=== PATIENT | female | born 1985 | race African-American/Black ===

== ENCOUNTER 2016-11-29 20:56 | Emergency (ER) | payer OTHER ==
[~2016-11-29] VITALS: Ht 160 cm; Wt 74.8 kg
[2016-11-29] MEDS ORDERED: DEXAMETHASONE SOD PHOS 20 MG/5 ML VIAL. IM ONE (22:00)
[2016-11-29] MEDS ORDERED: FAMOTIDINE 20 MG TABLET. PO ONE (22:00)
[2016-11-29] MEDS ORDERED: IV NORMAL SALINE 1000ML BAG 1,000 ML IV ONE (23:00)
[2016-11-29] MEDS ORDERED: diphenhydrAMINE 50 MG/ML VIAL IVP ONE (23:00)
[2016-11-29 23:09] LABS: POTASSIUM ISTAT 3.4 mmol/L (3.5-5.0)
[2016-11-29] MEDS ORDERED: FAMO-63 PO (23:36)
--- NOTE | 2016-11-29 23:37 | PHYS DOC ---
Past Medical History Past Medical History: No Pertinent History Past Surgical History: Alcohol Use: None Drug Use: None Adult General Chief Complaint Chief Complaint: ALLERGIC REACTION HPI HPI -year-old female with a history of prior hives after cutting the 1 now presents emergency department complaining of hives after cutting the lawn. Patient feels like she had a funny sensation in her throat but she is not short of breath. She has no wheezing. She reports itching and hives. No other complaints specifically she is not short of breath Review of Systems Review of Systems Constitutional: Denies fever or chills [] Eyes: Denies change in visual acuity, redness, or eye pain [] HENT: Denies nasal congestion or sore throat [] Respiratory: Denies cough or shortness of breath [] Cardiovascular: No additional information not addressed in HPI [] GI: Denies abdominal pain, nausea, vomiting, bloody stools or diarrhea [] : Denies dysuria or hematuria [] Musculoskeletal: Denies back pain or joint pain [] Integument: Denies rash or skin lesions [] Neurologic: Denies headache, focal weakness or sensory changes [] Endocrine: Denies polyuria or polydipsia [] Current Medications Current Medications Current Medications Medications (Trade) Dose Ordered Sig/Simone Start Time Stop Time Status Last Admin Dose Admin Dexamethasone Sodium Phosphate (Decadron) 10 mg 1X ONCE 11/29/16 22:00 11/29/16 22:01 DC 11/29/16 22:11 10 MG Diphenhydramine HCl (Benadryl) 25 mg 1X ONCE 11/29/16 23:00 11/29/16 23:03 DC 11/29/16 23:03 25 MG Famotidine (Pepcid) 20 mg 1X ONCE 11/29/16 22:00 11/29/16 22:01 DC 11/29/16 22:10 20 MG Sodium Chloride 1,000 ml @ 1,000 mls/hr 1X ONCE 11/29/16 23:00 11/29/16 23:59 11/29/16 23:03 1,000 MLS/HR Allergies Allergies Allergies Coded Allergies Type Severity Reaction Last Updated Verified amoxicillin Allergy Intermediate "Amoxicillin rash." 08/28/14 Yes Physical Exam Physical Exam Well-appearing patient in no acute distress alert communicative. Facial hives with no oropharyngeal involvement. Normal oropharynx. No stridor normal voice clear lungs no gross spasm. Remainder of exam is benign except for scattered urticaria Constitutional: Well developed, well nourished, no acute distress, non-toxic appearance. [] HENT: Normocephalic, atraumatic, bilateral external ears normal, oropharynx moist, no oral exudates, nose normal. [] Eyes: PERRLA, EOMI, conjunctiva normal, no discharge. [] Neck: Normal range of motion, no tenderness, supple, no stridor. [] Cardiovascular:Heart rate regular rhythm, no murmur [] Lungs & Thorax: Bilateral breath sounds clear to auscultation [] Abdomen: Bowel sounds normal, soft, no tenderness, no masses, no pulsatile masses. [] Skin: Warm, dry, no erythema, no rash. [] Back: No tenderness, no CVA tenderness. [] Extremities: No tenderness, no cyanosis, no clubbing, ROM intact, no edema. [] Neurologic: Alert and oriented X 3, normal motor function, normal sensory function, no focal deficits noted. [] Psychologic: Affect normal, judgement normal, mood normal. [] Current Patient Data Vital Signs Vital Signs Date Time Temp Pulse Resp B/P (MAP) Pulse Ox O2 Delivery O2 Flow Rate FiO2 11/29/16 21:05 98.3 100 16 100 Room Air 98.3 Lab Values Laboratory Tests Test 11/29/16 22:58 POC Hemoglobin 12.6 g/dL (12-15) POC Hematocrit 37 % (36-40) POC Sodium 138 mmol/L (135-145) POC Potassium 3.4 mmol/L (3.5-5.0) L POC Chloride 101 mmol/L (98-110) POC Total CO2 25 mmol/L (23-32) Anion Gap 17 mmol/L (6-14) H POC Blood Urea Nitrogen 12 mg/dL (8-26) POC Creatinine 0.7 mg/dL (0.5-1.4) Glucose Level 89 mg/dL (70-99) POC Ionized Calcium (Henry) 1.21 mmol/L (1.13-1.32) Laboratory Tests 11/29/16 22:58 EKG EKG [] Radiology/Procedures Radiology/Procedures [] Course & Med Decision Making Course & Med Decision Making Pertinent Labs and Imaging studies reviewed. (See chart for details) Signs and symptoms consistent with allergic reaction but no clinical evidence of anaphylaxis. Patient clearly with urticaria but is in no acute distress with unremarkable vital signs. IV fluids given.. Patient observed for extended period with no evidence of evolving airway involvement. Vital signs stable i- STAT unremarkable no further workup or treatment indicated. Patient agrees with outpatient follow-up and start prescription. She is aware to use Benadryl and Pepcid as needed as prescribed follow-up with her primary care doctor tomorrow and strict return precautions given. [] Dragon Disclaimer Dragon Disclaimer This electronic medical record was generated, in whole or in part, using a voice recognition dictation system. Departure Departure Impression: Primary Impression: Allergic reaction Additional Impression: Urticaria Disposition: HOME, SELF-CARE Condition: IMPROVED Referrals: RENEE LARA MD (PCP) Additional Instructions: It is likely that you're urticaria is a result of an allergic reaction to something that you were exposed to while cutting the lawn. You have no evidence of airway involvement this evening. You been given steroids in the emergency department. Finish her prednisone prescription as directed. Use Benadryl every 4 hours as well as Pepcid twice a day as needed for itching and symptoms of allergic reaction. Follow-up with your doctor for reevaluation and to arrange allergy testing after resolution of your symptoms. Return immediately for new severe or worsening symptoms specifically for any signs of airway involvement. Scripts Prednisone (PREDNISONE) 20 Mg Tablet 1 TAB PO DAILY, #5 TAB Prov: GABO QUINTANILLA MD 11/29/16 Famotidine (PEPCID) 20 Mg Tablet 20 MG PO BID Y for ALLERGIES, #14 TAB Prov: GABO QUINTANILLA MD 11/29/16 Problem Qualifiers GABO QUINTANILLA MD Nov 29, 2016 23:36
[2016-11-29] MEDS ORDERED: PRED20TA PO (23:43)
[2016-11-30 00:12] VITALS: BP 129/73
== END 2016-11-30 00:13 | disposition home or self-care (01) ==
LOC: ER 20:56
DX: L50.0 Allergic urticaria (principal); Z88.0 Allergy status to penicillin
CPT/HCPCS: 80047; 96361; 96372; 96374; 99284; J1100; J1200; J7030; 36415

== ENCOUNTER 2016-12-12 12:36 | Emergency (ER) | payer OTHER ==
[~2016-12-12] VITALS: Ht 160 cm; Wt 74.8 kg
[~2016-12-12 12:36] MED LIST: FAMO-63 PO; PRED20TA PO
[2016-12-12 12:56] VITALS: BP 127/90
[2016-12-12] MEDS ORDERED: PRED20TA PO (13:16)
--- NOTE | 2016-12-12 13:16 | PHYS DOC ---
Past Medical History Past Medical History: No Pertinent History Past Surgical History: Alcohol Use: None Drug Use: None Adult General Chief Complaint Chief Complaint: ALLERGIC REACTION HPI HPI Patient is a 31 year old female presents to the emergency department stating that she is here for a rash that she's had for a couple weeks. She was seen here the week ago in regards to the rash and was placed on prednisone. She states that the area has not really gotten much better. She states that she ended the steroids approximately 4 days ago the rash is come back. She denies any shortness of air difficulty breathing. Review of Systems Review of Systems Constitutional: Denies fever or chills [] Eyes: Denies change in visual acuity, redness, or eye pain [] HENT: Denies nasal congestion or sore throat [] Respiratory: Denies cough or shortness of breath [] Cardiovascular: No additional information not addressed in HPI [] GI: Denies abdominal pain, nausea, vomiting, bloody stools or diarrhea [] : Denies dysuria or hematuria [] Musculoskeletal: Denies back pain or joint pain [] Integument: rash denies skin lesions [] Neurologic: Denies headache, focal weakness or sensory changes [] Endocrine: Denies polyuria or polydipsia [] Allergies Allergies Allergies Coded Allergies Type Severity Reaction Last Updated Verified amoxicillin Allergy Intermediate "Amoxicillin rash." 08/28/14 Yes Physical Exam Physical Exam Constitutional: Well developed, well nourished, no acute distress, non-toxic appearance. [] HENT: Normocephalic, atraumatic, bilateral external ears normal, oropharynx moist, no oral exudates, nose normal. [] Eyes: PERRLA, EOMI, conjunctiva normal, no discharge. [] Neck: Normal range of motion, no tenderness, supple, no stridor. [] Cardiovascular:Heart rate regular rhythm, no murmur [] Lungs & Thorax: Bilateral breath sounds clear to auscultation [] Skin: Warm, dry, no erythema, patient with a red rash that is not raised on her hands and on the left side of her face. She does have raised areas noted on her forehead. No drainage or discharge noted from the site. Back: No tenderness Extremities: No tenderness, no cyanosis, no clubbing, ROM intact, no edema. [] Neurologic: Alert and oriented X 3, normal motor function, normal sensory function, no focal deficits noted. [] Psychologic: Affect normal, judgement normal, mood normal. [] Current Patient Data Vital Signs Vital Signs Date Time Temp Pulse Resp B/P (MAP) Pulse Ox O2 Delivery O2 Flow Rate FiO2 12/12/16 12:56 98.0 77 18 99 Room Air 98.0 EKG EKG [] Radiology/Procedures Radiology/Procedures [] Course & Med Decision Making Course & Med Decision Making Pertinent Labs and Imaging studies reviewed. (See chart for details) Patient will be provided with a Solu-Medrol injection here in the emergency department. She'll be provided with prednisone for the next 7 days. Recommended Benadryl 25 mg every 6 hours. She was instructed that this will cause drowsiness do not take any be alert and oriented. Patient was also encouraged to use Pepcid. Patient will be discharged home in stable condition signs and symptoms to return back to emergency department as been provided. All questions and concerns been answered at patient's bedside. She does have an appointment with her primary care physician in the next week. [] Dragon Disclaimer Dragon Disclaimer This electronic medical record was generated, in whole or in part, using a voice recognition dictation system. Departure Departure Impression: Primary Impression: Contact dermatitis Disposition: 01 HOME, SELF-CARE Condition: STABLE Referrals: RENEE LARA MD (PCP) Patient Instructions: Rash, [id number] Additional Instructions: Activity as tolerated. Continue with the Benadryl 25 mg every 6 hours as needed for itching and irritation. Keep the areas clean dry and cool. Medication as prescribed. Continue with Pepcid. Keep your follow-up appointment next week with her primary care physician. Return back to emergency prior signs symptoms become worse. Scripts Prednisone (PREDNISONE) 20 Mg Tablet 40 MG PO DAILY for 7 Days, #14 TAB Prov: IBETH KEY APRN 12/12/16 Problem Qualifiers Primary Impression: Contact dermatitis Contact dermatitis type: unspecified Contact dermatitis trigger: unspecified trigger Qualified Codes: L25.9 - Unspecified contact dermatitis, unspecified cause IBETH KEY APRN Dec 12, 2016 13:16
[2016-12-12] MEDS ORDERED: methylPREDNISolone SOD SUCC PF 125 MG/2 ML VIAL. IM ONE (13:30)
== END 2016-12-12 13:28 | disposition home or self-care (01) ==
LOC: ER 12:36
DX: L25.9 Unspecified contact dermatitis, unspecified cause (principal); Z88.1 Allergy status to other antibiotic agents
CPT/HCPCS: 96372; 99283; J2930

== ENCOUNTER 2017-06-29 21:41 | Emergency (ER) | payer OTHER ==
[2017-06-29 22:11] LABS: ADD MAN DIFF? NO
[2017-06-29 22:15] LABS: BASO # 0.1 x10^3/uL (0.0-0.2); BASO % 1 % (0-3); EOS # 0.3 x10^3/uL (0.0-0.7); EOS % 4 % (0-3); HEMATOCRIT 36.4 % (36.0-47.0); HEMOGLOBIN 12.1 g/dL (12.0-15.5); LYMPH # 2.5 x10^3/uL (1.0-4.8); LYMPH % 32 % (24-48); MEAN CORPUSCULAR HEMOGLOBIN 28 pg (25-35); MEAN CORPUSCULAR HGB CONC 33 g/dL (31-37); MEAN CORPUSCULAR VOLUME 84 fL (79-100); MONO # 0.3 x10^3/uL (0.0-1.1); MONO % 4 % (0-9); NEUT # 4.7 x10^3uL (1.8-7.7); NEUT % 60 % (31-73); PLATELET COUNT 320 x10^3/uL (140-400); RED BLOOD COUNT 4.32 x10^6/uL (3.50-5.40); RED CELL DISTRIBUTION WIDTH 14.8 % (11.5-14.5); WHITE BLOOD COUNT 7.9 x10^3/uL (4.0-11.0)
[2017-06-29] MEDS ORDERED: 0.9 % SODIUM CHLORIDE 10 ML DISP.SYRIN. IV (22:15)
[2017-06-29] MEDS ORDERED: MORPHINE SULFATE 10 MG/ML VIAL. (22:21)
[2017-06-29] MEDS: MORPHINE SULFATE 4 MG/ML DISP.SYRIN. IV/SQ ×2 (22:29→23:13)
[2017-06-29] MEDS: ONDANSETRON PF 4 MG/2 ML VIAL. IV ×2 (22:29)
[2017-06-29] MEDS: IV DEXTROSE 5% - 0.9 % NACL 500 ML IV (22:29)
[2017-06-29 22:52] LABS: ANION GAP 11 (6-14); BLOOD UREA NITROGEN 8 mg/dL (7-20); CALCIUM 8.3 mg/dL (8.5-10.1); CARBON DIOXIDE 23 mmol/L (21-32); CHLORIDE 104 mmol/L (98-107); CREATININE 0.6 mg/dL (0.6-1.0); GLUCOSE 131 mg/dL (70-99); POTASSIUM 3.6 mmol/L (3.5-5.1); SODIUM 138 mmol/L (136-145)
[2017-06-29 22:58] LABS: ALBUMIN 3.2 g/dL (3.4-5.0); ALK PHOS 62 U/L (46-116); ALT (SGPT) 17 U/L (14-59); AST (SGOT) 13 U/L (15-37); DIRECT BILIRUBIN < 0.1 mg/dL (0.0-0.2); MAGNESIUM 1.7 mg/dL (1.8-2.4); TOTAL BILIRUBIN 0.2 mg/dL (0.2-1.0); TOTAL PROTEIN 6.4 g/dL (6.4-8.2)
[2017-06-29 23:13] LABS: URINE HCG POC HCG POSITIVE (Negative)
[2017-06-29 23:15] LABS: BILIRUBIN,URINE NEGATIVE (NEG); COLOR,URINE YELLOW; GLUCOSE,URINE NEGATIVE (NEG); NITRITE,URINE NEGATIVE (NEG); PH,URINE 6.5; PROTEIN,URINE NEGATIVE (NEG-TRACE); UROBILINOGEN,URINE 0.2 mg/dL (0.2 mg/dL)
[2017-06-29 23:20] LABS: CLARITY,URINE CLEAR
[2017-06-29 23:23] LABS: BACTERIA,URINE FEW /HPF (0-FEW); RBC,URINE 0 /HPF (0-2); SQUAMOUS EPITHELIAL CELL,UR MOD /LPF; WBC,URINE RARE /HPF (0-4)
== END 2017-06-29 23:36 | disposition home or self-care (01) ==
LOC: ER 21:41
DX: O20.0 Threatened abortion (principal); O23.41 Unspecified infection of urinary tract in pregnancy, first trimester; Z3A.08 8 weeks gestation of pregnancy; Z88.1 Allergy status to other antibiotic agents
CPT/HCPCS: 36415; 76801; 76817; 80048; 80076; 81001; 81025; 83735; 84702; 85025; 96361; 96374; 96375; 96376; 99285-25; J2270; J2405; J7042

== ENCOUNTER → 2017-09-29 | Outpatient (CLI) | payer OTHER | END | disposition home or self-care (01) | LOC: US 10:54 | DX: Z34.82 Encounter for supervision of other normal pregnancy, second trimester (principal); Z3A.21 21 weeks gestation of pregnancy | CPT/HCPCS: 76805 ==

== ENCOUNTER 2017-12-03 01:29 | Observation (INO) | payer OTHER ==
[2017-06-29 21:50] VITALS: BP 118/82
[~2017-12-03 01:29] MED LIST changes: +ACET325T9 PO; +NITR100C62 PO; +ONDA4TAB10 PO
[2017-12-03] MEDS ORDERED: IV RINGERS,LACTATED 1000ML 1,000 ML IV PRN (01:45)
[2017-12-03 02:02] LABS: BILIRUBIN,URINE NEGATIVE (NEG); CLARITY,URINE CLEAR; COLOR,URINE YELLOW; NITRITE,URINE NEGATIVE (NEG); PROTEIN,URINE NEGATIVE (NEG-TRACE); UROBILINOGEN,URINE 0.2 mg/dL (0.2 mg/dL)
[2017-12-03 02:08] LABS: BARBITURATES NEG (NEG); BENZODIAZEPINES NEG (NEG); COCAINE NEG (NEG); METHADONE NEG (NEG)
[2017-12-03 02:09] LABS: BACTERIA,URINE FEW /HPF (0-FEW); CANNABINOIDS NEG (NEG); OPIATES POS (NEG); PHENCYCLIDINE NEG (NEG); RBC,URINE 0 /HPF (0-2); SQUAMOUS EPITHELIAL CELL,UR MANY /LPF
[2017-12-03 02:10] LABS: AMPHETAMINE/METHAMPHETAMINE NEG (NEG)
[2017-12-03] MEDS ORDERED: hydrOXYzine PAMOATE 25 MG CAPSULE PO PRN (03:45)
[2017-12-03] MEDS ORDERED: PRED20TA PO (05:01)
[2017-12-03] MEDS ORDERED: CHLO15MO2 PO (05:01)
[2017-12-03] MEDS ORDERED: CLIN300C8 PO (05:01)
== END 2017-12-03 04:00 | disposition home or self-care (01) ==
LOC: 3 SO LND 01:29
PROVIDERS: ADMIT Obstetrics & Gynecology; ATTEND Obstetrics & Gynecology
DX: O26.893 Other specified pregnancy related conditions, third trimester (principal); R10.9 Unspecified abdominal pain; K08.89 Other specified disorders of teeth and supporting structures; Z3A.29 29 weeks gestation of pregnancy
CPT/HCPCS: 80307; 81001; G0378; G0379; Q0177; G0479

== ENCOUNTER 2017-12-03 04:13 | Emergency (ER) | payer OTHER ==
[~2017-12-03] VITALS: Ht 160 cm; Wt 86.2 kg
[2017-12-03 04:23] VITALS: BP 125/70
[2017-12-03] MEDS ORDERED: BUPIVAC MPF-EPI 0.5%-1:200000 30 ML VIAL. INJ ONE (05:00)
[2017-12-03] MEDS ORDERED: CLINDAMYCIN HCL 150 MG CAPSULE. PO ONE (05:00)
[2017-12-03] MEDS ORDERED: DEXAMETHASONE 4 MG TABLET PO ONE (05:00)
[2017-12-03] MEDS ORDERED: PRED20TA PO (05:01)
[2017-12-03] MEDS ORDERED: CLIN300C8 PO (05:01)
[2017-12-03] MEDS ORDERED: CHLO15MO2 PO (05:01)
--- NOTE | 2017-12-03 05:01 | PHYS DOC ---
Past Medical History Past Medical History: No Pertinent History Past Surgical History: Alcohol Use: None Drug Use: None Adult General Chief Complaint Chief Complaint: DENTAL PROBLEM HPI HPI Patient is a 32 year old [f__sex] who presents with [] Review of Systems Review of Systems Constitutional: Denies fever or chills [] Eyes: Denies change in visual acuity, redness, or eye pain [] HENT: Denies nasal congestion or sore throat [] Respiratory: Denies cough or shortness of breath [] Cardiovascular: No additional information not addressed in HPI [] GI: Denies abdominal pain, nausea, vomiting, bloody stools or diarrhea [] : Denies dysuria or hematuria [] Musculoskeletal: Denies back pain or joint pain [] Integument: Denies rash or skin lesions [] Neurologic: Denies headache, focal weakness or sensory changes [] Endocrine: Denies polyuria or polydipsia [] All other systems were reviewed and found to be within normal limits, except as documented in this note. Current Medications Current Medications Current Medications Medications (Trade) Dose Ordered Sig/Simone Start Time Stop Time Status Last Admin Dose Admin Bupivacaine HCl/ Epinephrine Bitart (Sensorcain-Mpf Epi 0.5%-1:[id number]) 30 ml 1X ONCE 12/03/17 05:00 12/03/17 05:01 Clindamycin HCl (Cleocin) 450 mg 1X ONCE 12/03/17 05:00 12/03/17 05:01 Dexamethasone (Decadron) 10 mg 1X ONCE 12/03/17 05:00 12/03/17 05:01 Allergies Allergies Allergies Coded Allergies Type Severity Reaction Last Updated Verified amoxicillin Allergy Intermediate "Amoxicillin rash." 08/28/14 Yes Physical Exam Physical Exam Constitutional: Well developed, well nourished, no acute distress, non-toxic appearance. [] HENT: Normocephalic, atraumatic, bilateral external ears normal, oropharynx moist, no oral exudates, nose normal. [] Eyes: PERRLA, EOMI, conjunctiva normal, no discharge. [] Neck: Normal range of motion, no tenderness, supple, no stridor. [] Cardiovascular:Heart rate regular rhythm, no murmur [] Lungs & Thorax: Bilateral breath sounds clear to auscultation [] Abdomen: Bowel sounds normal, soft, no tenderness, no masses, no pulsatile masses. [] Skin: Warm, dry, no erythema, no rash. [] Back: No tenderness, no CVA tenderness. [] Extremities: No tenderness, no cyanosis, no clubbing, ROM intact, no edema. [] Neurologic: Alert and oriented X 3, normal motor function, normal sensory function, no focal deficits noted. [] Psychologic: Affect normal, judgement normal, mood normal. [] Current Patient Data Vital Signs Vital Signs Date Time Temp Pulse Resp B/P (MAP) Pulse Ox O2 Delivery O2 Flow Rate FiO2 12/03/17 04:23 98.3 78 18 125/70 (88) 99 Room Air 98.3 EKG EKG [] Radiology/Procedures Radiology/Procedures [] Course & Med Decision Making Course & Med Decision Making Pertinent Labs and Imaging studies reviewed. (See chart for details) [] Dragon Disclaimer Dragon Disclaimer This electronic medical record was generated, in whole or in part, using a voice recognition dictation system. Departure Departure Impression: Primary Impression: Dentalgia Additional Impression: Tooth fracture Disposition: HOME, SELF-CARE Condition: STABLE Referrals: RENEE LARA MD (PCP) Patient Instructions: Dental Fracture, Toothache-Brief Scripts Prednisone (PREDNISONE) 20 Mg Tablet 2 TAB PO DAILY for 4 Days, #8 TAB Start on Tuesday12/04/17 Prov: GABO HARDING DO 12/03/17 Clindamycin Hcl (CLINDAMYCIN HCL) 300 Mg Capsule 1 CAP PO TID for Infection for 7 Days, #21 CAP Prov: GABO HARDING DO 12/03/17 Chlorhexidine Gluconate (PERIDEX) 15 Ml Mouthwash 15 ML PO BID for 7 Days, #946 ML Prov: GABO HARDING DO 12/03/17 Problem Qualifiers Additional Impression: Tooth fracture Encounter type: initial encounter Fracture type: open Qualified Codes: S02.5XXB - Fracture of tooth (traumatic), initial encounter for open fracture GABO HARDING DO Dec 03, 2017 05:01
== END 2017-12-03 05:27 | disposition home or self-care (01) ==
LOC: ER 04:13
DX: S02.5XXA Fracture of tooth (traumatic), initial encounter for closed fracture (principal); Z88.0 Allergy status to penicillin; X58.XXXA Exposure to other specified factors, initial encounter; Y99.8 Other external cause status; Y92.89 Other specified places as the place of occurrence of the external cause; Y93.89 Activity, other specified
CPT/HCPCS: 96372; 99283; J3490; J8540

== ENCOUNTER 2018-01-24 03:23 | Observation (INO) | payer OTHER ==
[~2018-01-24 03:23] MED LIST changes: +CHLO15MO2 PO; +CLIN300C8 PO
[2018-01-24 03:50] LABS: BILIRUBIN,URINE NEGATIVE (NEG); CLARITY,URINE CLEAR; COLOR,URINE YELLOW; NITRITE,URINE NEGATIVE (NEG); PH,URINE 6.5; PROTEIN,URINE NEGATIVE (NEG-TRACE); UROBILINOGEN,URINE 0.2 mg/dL (0.2 mg/dL)
[2018-01-24 03:54] LABS: BACTERIA,URINE FEW /HPF (0-FEW); RBC,URINE 0 /HPF (0-2)
[2018-01-24 03:55] LABS: SQUAMOUS EPITHELIAL CELL,UR MOD /LPF
[2018-01-24 03:57] LABS: AMPHETAMINE/METHAMPHETAMINE NEG (NEG); BARBITURATES POS (NEG); BENZODIAZEPINES NEG (NEG); CANNABINOIDS NEG (NEG); COCAINE NEG (NEG); METHADONE NEG (NEG); OPIATES NEG (NEG); PHENCYCLIDINE NEG (NEG)
[2018-01-24] MEDS ORDERED: IV RINGERS,LACTATED 1000ML 1,000 ML IV PRN (04:00)
[2018-02-11] MEDS ORDERED: NAPR-514 PO (17:28)
[2018-02-11] MEDS ORDERED: HYDR-971 PO (17:28)
== END 2018-01-24 05:17 | disposition home or self-care (01) ==
LOC: 3 SO LND 03:23
PROVIDERS: ADMIT Obstetrics & Gynecology; ATTEND Obstetrics & Gynecology
DX: O26.893 Other specified pregnancy related conditions, third trimester (principal); R10.9 Unspecified abdominal pain; Z3A.36 36 weeks gestation of pregnancy; Z79.899 Other long term (current) drug therapy
CPT/HCPCS: 80307; 81001; G0378; G0379; G0479

== ENCOUNTER 2018-03-08 22:32 | Emergency (ER) | payer OTHER ==
[~2018-03-08] VITALS: Ht 160 cm; Wt 77.1 kg
[~2018-03-08 22:32] MED LIST changes: +HYDR-3164 PO; +NAPR-514 PO
[2018-03-08 22:35] VITALS: BP 141/105
[2018-03-08] MEDS ORDERED: OXYC1TAB15 PO (23:42)
--- NOTE | 2018-03-08 23:42 | PHYS DOC ---
Past Medical History Past Medical History: No Pertinent History Past Surgical History: Alcohol Use: None Drug Use: None Adult General Chief Complaint Chief Complaint: DENTAL PROBLEM HPI HPI Patient is a 32 year old female who presents with left facial swelling for her left upper facial dental abscess. Which his dentist on Tuesday and they gave her clindamycin and [place]. Patient states is not working and the pain is getting worse. Patient denies fever. Patient sees a Dr Tomas. Review of Systems Review of Systems Constitutional: Denies fever or chills [] Eyes: Denies change in visual acuity, redness, or eye pain [] HENT: Dental pain. Denies nasal congestion or sore throat [] Respiratory: Denies cough or shortness of breath [] Cardiovascular: No additional information not addressed in HPI [] GI: Denies abdominal pain, nausea, vomiting, bloody stools or diarrhea [] : Denies dysuria or hematuria [] Musculoskeletal: Denies back pain or joint pain [] Integument: Denies rash or skin lesions [] Neurologic: Denies headache, focal weakness or sensory changes [] Endocrine: Denies polyuria or polydipsia [] All other systems were reviewed and found to be within normal limits, except as documented in this note. Physical Exam Physical Exam Constitutional: Well developed, well nourished, no acute distress, non-toxic appearance. [] HENT: Dental pain. Normocephalic, atraumatic, bilateral external ears normal, oropharynx moist, no oral exudates, nose normal. [] Eyes: PERRLA, EOMI, conjunctiva normal, no discharge. [] Neck: Normal range of motion, no tenderness, supple, no stridor. [] Cardiovascular:Heart rate regular rhythm, no murmur [] Lungs & Thorax: Bilateral breath sounds clear to auscultation [] Abdomen: Bowel sounds normal, soft, no tenderness, no masses, no pulsatile masses. [] Skin: Warm, dry, no erythema, no rash. [] Back: No tenderness, no CVA tenderness. [] Extremities: No tenderness, no cyanosis, no clubbing, ROM intact, no edema. [] Neurologic: Alert and oriented X 3, normal motor function, normal sensory function, no focal deficits noted. [] Psychologic: Affect normal, judgement normal, mood normal. [] Current Patient Data Vital Signs Vital Signs Date Time Temp Pulse Resp B/P (MAP) Pulse Ox O2 Delivery O2 Flow Rate FiO2 03/08/18 22:35 97.7 84 20 141/105 (117) 98 Room Air 97.7 EKG EKG [] Radiology/Procedures Radiology/Procedures [] Course & Med Decision Making Course & Med Decision Making Patient is a 32 year old female who presents with left facial swelling for her left upper facial dental abscess. Which his dentist on Tuesday and they gave her clindamycin and [place]. Patient states is not working and the pain is getting worse. Patient denies fever. Patient sees a Dr Tomas. Alert and oriented. I don' t see any left facial swelling. Patient is told to stop taking her [place] that she is given Percocet instead. Patient is told to continue taking her antibiotic and to call her dentist in the morning. AFebrile. [] Dragon Disclaimer Dragon Disclaimer This electronic medical record was generated, in whole or in part, using a voice recognition dictation system. Departure Departure Impression: Primary Impression: Pain, dental Disposition: 01 HOME, SELF-CARE Condition: STABLE Referrals: NO PCP (PCP) Patient Instructions: Dental Pain Additional Instructions: Call your dentist in the morning. Stop taking [place] and Take Percocet instead. Scripts Oxycodone/Apap 5-325 (PERCOCET 5-325 MG TABLET ) 1 Each Tablet 1 TAB PO PRN Q6HRS PRN for PAIN, #15 TAB 0 Refills Prov: IBETH MANSFIELD APRN 03/08/18 IBETH MANSFIELD APRN Mar 08, 2018 23:42
[2018-03-09] MEDS ORDERED: oxyCODONE/APAP 5/325 1 TAB TABLET PO ONE (00:30)
== END 2018-03-09 00:08 | disposition home or self-care (01) ==
LOC: ER 22:32
DX: K04.7 Periapical abscess without sinus (principal)
CPT/HCPCS: 99283

== ENCOUNTER → 2018-03-30 | Day surgery (SDC) | payer OTHER ==
[~2018-03-30] MED LIST changes: +BUPIVAC MPF-EPI 0.5%-1:200000 30 ML VIAL. ONE; +DESFLURANE 31 TO 60 MINUTES IH ONE; +DEXAMETHASONE SOD PHOS 20 MG/5 ML VIAL. ONE; +FAMOTIDINE 20 MG/2 ML VIAL ONE; +GLYCOPYRROLATE 1 MG/5 ML VIAL. ONE; +HYDROmorphone 2 MG/ML VIAL IV PRN; +IBUP-1027 PO; +IV RINGERS,LACTATED 1000ML 1,000 ML IV SCH; +KETOROLAC 30 MG/ML INJ FOR OR. INJ ONE; +LIDOCAINE 1% PF 2 ML VIAL. ID PRN; +LIDOCAINE 2% PF Vial for OR 5 ML VIAL. ONE; +MIDAZOLAM HCL/PF 2 MG/2 ML VIAL. ONE; +NEOSTIGMINE METHYLSULFATE 5 MG/5 ML SYRINGE. ONE; +ONDANSETRON PF 4 MG/2 ML VIAL. IV PRN; +ONDANSETRON PF 4 MG/2 ML VIAL. ONE; +OXYC1TAB15 PO; +PREN1TAB58 PO; +PROCHLORPERAZINE 10 MG/2 ML VIAL. IV PRN; +PROPOFOL 20 ML IV ONE; +ROCURONIUM 50 MG/5 ML VIAL. ONE; +SCOPOLAMINE 1.5MG PATCH. TD ONE; +SCOPOLAMINE 1.5MG PATCH. TD SCH; +fentaNYL PF VIAL 100 MCG/2 ML VIAL IV PRN; +fentaNYL PF VIAL 100 MCG/2 ML VIAL ONE; +oxyCODONE/APAP 5/325 1 TAB TABLET PO ONE
[2018-03-30 06:40] LABS: U PREG PATIENT NEGATIVE (NEG)
--- NOTE | 2018-03-30 09:01 | PDOC ---
BRIEF OPERATIVE NOTE Date: Mar 30, 2018 Pre-Op Diagnosis Sterilization Post-Op Diagnosis Same Procedure Performed [facility] Surgeon Dr. Saab Anesthesia Type: General Blood Loss less 5 ml Specimens Obtained none Findings nml uterus, nml fallopian tubes and ovaries tessie. Complications none Operative Note see dictation JONAS SAAB Jr, MD Mar 30, 2018 09:01
--- NOTE | 2018-03-30 09:01 | DISCH ---
DISCHARGE INSTRUCTIONS Condition on Discharge Condition on Discharge: Stable Activity After Discharge Activity Instructions for Disc: Activity as tolerated Lifting Instructions after Dis: No heavy lifting Driving Instructions after Dis: Do not drive today Diet after Discharge Diet after Discharge: Regular Contacting the DRJamison after DC Call your doctor for: Concerns you may have Follow-Up Follow up with: Dr. Saab in 1 week. JONAS SAAB Jr, MD Mar 30, 2018 09:01
[2018-03-30] MEDS: fentaNYL PF VIAL 100 MCG/2 ML VIAL IV PRN ×3 (09:10→09:43)
[2018-03-30] MEDS: MORPHINE SULFATE 2 MG/ML VIAL. IV PRN ×2 (09:31→09:53)
--- NOTE | 2018-03-30 09:49 | OP ---
DATE OF SURGERY: PREOPERATIVE DIAGNOSIS: Sterilization. POSTOPERATIVE DIAGNOSIS: Sterilization. PROCEDURE: Laparoscopic BTL. SURGEON: Ric Saab MD ANESTHESIA: GETA. ESTIMATED BLOOD LOSS: Less than 5 mL. COMPLICATIONS: None. FINDINGS: Normal size uterus, normal fallopian tubes and ovaries bilaterally. SUMMARY: A 32-year-old female who desired permanent sterilization, was counseled on risks, benefits and expectations as well as failure rate and voiced clear understanding to proceed. DESCRIPTION OF PROCEDURE: The patient was taken to surgery suite and placed in dorsal lithotomy position. She was prepped with Betadine solution for vaginal prep and ChloraPrep for abdominal prep. After adequate anesthesia, bivalve speculum was placed vaginally. Anterior lip of the cervix grasped with single tooth tenaculum. The acorn uterine manipulator was then placed. The bivalve speculum was removed. Attention was now placed on abdomen. Small transverse skin incision made just below the umbilicus with the scalpel. The Veress needle was then placed through the infraumbilical incision site. The abdomen was allowed to insufflate up to 1-1/2 liters CO2 gas. The Veress needle was then removed, 5 mm trocar was placed. Scope was positioned. The uterus, fallopian tubes and ovaries appeared normal bilaterally. A second incision was made in the left lower quadrant in which 8 mm trocar was placed with aid of Filshie clip applicator. The Filshie clip was applied to the isthmus region of the right fallopian tube, totally occluding the fallopian tube. Same process took place with the left adnexa. The trocars were then removed under direct visualization. The abdomen was allowed to deflate as much as possible along with mechanical manipulation. The two skin incisions were reapproximated using 4-0 Vicryl suture in subcuticular manner. A 0.5% Marcaine with epinephrine was injected at each incision site. Uterine acorn manipulator and single tooth tenaculum were removed. The patient tolerated the procedure well and was taken to recovery room in stable condition. Sponge and needle count correct x 3. RIC SAAB MD DR: INNA/humaira JOB#: [id number] / [id number]
[2018-03-30 10:45] VITALS: BP 121/82
== END | disposition home or self-care (01) ==
LOC: SURG 06:22
PROVIDERS: ATTEND Obstetrics & Gynecology
DX: Z30.2 Encounter for sterilization (principal); Z98.890 Other specified postprocedural states; Z79.899 Other long term (current) drug therapy
CPT/HCPCS: 58671; 81025; A4264; A7015; J0780; J1100; J1885; J2001; J2250; J2270; J2405; J2704; J2710; J3010; J3490; J7120

== ENCOUNTER 2018-09-18 01:50 | Emergency (ER) | payer OTHER ==
[~2018-09-18] VITALS: Ht 160 cm; Wt 91.2 kg
[~2018-09-18 01:50] MED LIST changes: -BUPIVAC MPF-EPI 0.5%-1:200000 30 ML VIAL. ONE; -DESFLURANE 31 TO 60 MINUTES IH ONE; -DEXAMETHASONE SOD PHOS 20 MG/5 ML VIAL. ONE; -FAMOTIDINE 20 MG/2 ML VIAL ONE; -GLYCOPYRROLATE 1 MG/5 ML VIAL. ONE; -HYDROmorphone 2 MG/ML VIAL IV PRN; -IV RINGERS,LACTATED 1000ML 1,000 ML IV SCH; -KETOROLAC 30 MG/ML INJ FOR OR. INJ ONE; -LIDOCAINE 1% PF 2 ML VIAL. ID PRN; -LIDOCAINE 2% PF Vial for OR 5 ML VIAL. ONE; -MIDAZOLAM HCL/PF 2 MG/2 ML VIAL. ONE; -NEOSTIGMINE METHYLSULFATE 5 MG/5 ML SYRINGE. ONE; -ONDANSETRON PF 4 MG/2 ML VIAL. IV PRN; -ONDANSETRON PF 4 MG/2 ML VIAL. ONE; -PROCHLORPERAZINE 10 MG/2 ML VIAL. IV PRN; -PROPOFOL 20 ML IV ONE; -ROCURONIUM 50 MG/5 ML VIAL. ONE; -SCOPOLAMINE 1.5MG PATCH. TD ONE; -SCOPOLAMINE 1.5MG PATCH. TD SCH; -fentaNYL PF VIAL 100 MCG/2 ML VIAL IV PRN; -fentaNYL PF VIAL 100 MCG/2 ML VIAL ONE; -oxyCODONE/APAP 5/325 1 TAB TABLET PO ONE
[2018-09-18 02:07] VITALS: BP 134/92
[2018-09-18] MEDS ORDERED: CEPH-264 PO (02:28)
--- NOTE | 2018-09-18 02:28 | PHYS DOC ---
Past Medical History Past Medical History: No Pertinent History Past Surgical History: Alcohol Use: None Drug Use: None Adult General Chief Complaint Chief Complaint: INSECT BITE HPI HPI Patient is a 33 year old [f__sex] who presents with [] Review of Systems Review of Systems Constitutional: Denies fever or chills [] Eyes: Denies change in visual acuity, redness, or eye pain [] HENT: Denies nasal congestion or sore throat [] Respiratory: Denies cough or shortness of breath [] Cardiovascular: No additional information not addressed in HPI [] GI: Denies abdominal pain, nausea, vomiting, bloody stools or diarrhea [] : Denies dysuria or hematuria [] Musculoskeletal: Denies back pain or joint pain [] Integument: Denies rash or skin lesions [] Neurologic: Denies headache, focal weakness or sensory changes [] Endocrine: Denies polyuria or polydipsia [] All other systems were reviewed and found to be within normal limits, except as documented in this note. Current Medications Current Medications Current Medications Medications (Trade) Dose Ordered Sig/Simone Start Time Stop Time Status Last Admin Dose Admin Cephalexin HCl (Keflex) 500 mg 1X ONCE 09/18/18 02:30 09/18/18 02:31 UNV Dexamethasone (Decadron) 10 mg 1X ONCE 09/18/18 02:30 09/18/18 02:31 UNV Allergies Allergies Allergies Coded Allergies Type Severity Reaction Last Updated Verified No Known Drug Allergies 03/09/18 No Physical Exam Physical Exam Constitutional: Well developed, well nourished, no acute distress, non-toxic appearance. [] HENT: Normocephalic, atraumatic, bilateral external ears normal, oropharynx moist, no oral exudates, nose normal. [] Eyes: PERRLA, EOMI, conjunctiva normal, no discharge. [] Neck: Normal range of motion, no tenderness, supple, no stridor. [] Cardiovascular:Heart rate regular rhythm, no murmur [] Lungs & Thorax: Bilateral breath sounds clear to auscultation [] Abdomen: Bowel sounds normal, soft, no tenderness, no masses, no pulsatile masses. [] Skin: Warm, dry, no erythema, no rash. [] Back: No tenderness, no CVA tenderness. [] Extremities: No tenderness, no cyanosis, no clubbing, ROM intact, no edema. [] Neurologic: Alert and oriented X 3, normal motor function, normal sensory function, no focal deficits noted. [] Psychologic: Affect normal, judgement normal, mood normal. [] Current Patient Data Vital Signs Vital Signs Date Time Temp Pulse Resp B/P (MAP) Pulse Ox O2 Delivery O2 Flow Rate FiO2 09/18/18 02:07 97.9 75 18 134/92 (106) 100 Room Air 97.9 EKG EKG [] Radiology/Procedures Radiology/Procedures [] Course & Med Decision Making Course & Med Decision Making Pertinent Labs and Imaging studies reviewed. (See chart for details) [] Dragon Disclaimer Dragon Disclaimer This electronic medical record was generated, in whole or in part, using a voice recognition dictation system. Departure Departure Impression: Primary Impression: Insect bite Disposition: 01 HOME, SELF-CARE Condition: STABLE Referrals: NO PCP (PCP) Patient Instructions: Insect Bite, Imhb-ce-[id number] Scripts Cephalexin (KEFLEX) 500 Mg Capsule 500 MG PO QID for 7 Days, #28 CAP Prov: GABO HARDING DO 09/18/18 Problem Qualifiers Primary Impression: Insect bite Encounter type: initial encounter Site of insect bite: upper arm [place] terality: right Qualified Codes: S40.861A - Insect bite (nonvenomous) of right upper arm, initial encounter; W57.XXXA - Bitten or stung by nonvenomous insect and other nonvenomous arthropods, initial encounter GABO HARDING DO Sep 18, 2018 02:28
[2018-09-18] MEDS: NEOMY/BACITR/POLYMYXIN OINT PACKET. TP ONE (02:32)
[2018-09-18] MEDS: CEPHALEXIN 250 MG CAPSULE. PO ONE (02:32)
[2018-09-18] MEDS: DEXAMETHASONE 4 MG TABLET PO ONE (02:32)
== END 2018-09-18 02:36 | disposition home or self-care (01) ==
LOC: ER 01:50
DX: S40.861A Insect bite (nonvenomous) of right upper arm, initial encounter (principal); W57.XXXA Bitten or stung by nonvenomous insect and other nonvenomous arthropods, initial encounter; Y93.89 Activity, other specified; Y92.89 Other specified places as the place of occurrence of the external cause; Y99.8 Other external cause status
CPT/HCPCS: 99284; J8540

== ENCOUNTER 2018-11-13 07:08 | Emergency (ER) | payer MEDICAID, OTHER ==
[~2018-11-13] VITALS: Ht 160 cm; Wt 90.7 kg
[~2018-11-13 07:08] MED LIST changes: +CEPH-264 PO
[2018-11-13 07:17] VITALS: BP 166/107
[2018-11-13] MEDS ORDERED: LIDOCAINE 1% Multi-Dose 20 ML VIAL. ONE (07:27)
[2018-11-13] MEDS ORDERED: BENZOCAINE ONE 20% MUCOSAL SPRAY. (07:27)
--- NOTE | 2018-11-13 07:36 | PHYS DOC ---
Past Medical History Past Medical History: No Pertinent History Past Surgical History: Alcohol Use: None Drug Use: None Adult General Chief Complaint Chief Complaint: DENTAL PROBLEM HPI HPI Patient is a 33-year-old female who presents to the emergency department for evaluation. 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 She is having significant pain at that tooth. She denies any other painful areas, or any other injuries. She is a former smoker. There are no alleviating or exacerbating factors to her symptoms, although chewing and palpation of her tooth seem to worsen her pain. Review of Systems Review of Systems Constitutional: Denies fever or chills [] Eyes: Denies change in visual acuity, redness, or eye pain [] HENT: Denies nasal congestion or sore throat [] Neurologic: Denies headache, focal weakness or sensory changes [] Current Medications Current Medications Current Medications Medications (Trade) Dose Ordered Sig/Simone Start Time Stop Time Status Last Admin Dose Admin Benzocaine (Hurricaine One) 1 spray STK-MED ONCE 11/13/18 07:27 11/13/18 07:28 DC Lidocaine HCl (Lidocaine 1% 20ml Vial) 20 ml STK-MED ONCE 11/13/18 07:27 11/13/18 07:28 DC Allergies Allergies Allergies Coded Allergies Type Severity Reaction Last Updated Verified No Known Drug Allergies 03/09/18 No Physical Exam Physical Exam PHYSICAL EXAM: CONSTITUTIONAL: Well developed, well nourished HEAD: normocephalic, atraumatic EENT: PERRL, EOMI. Conjunctivae normal color, sclerae non-icteric; moist mucous membranes. There are several missing teeth, with some decay missing. On the left upper jaw, the anterior and posterior molars are absent, there is tenderness to palpation to the second, posterior premolar, without any obvious large defect in the filling that is present. The remainder of the dentition show some degree of decay. There is no gingival edema, or exam evidence of abscess. NECK: Supple, non-tender; no meningismus. LUNGS: Lungs CTA, breathing even and unlabored. Normal air movement. NEURO: Alert; normal speech and cognition; CN's grossly intact; strength grossly intact without focal deficit. Current Patient Data Vital Signs Vital Signs Date Time Temp Pulse Resp B/P (MAP) Pulse Ox O2 Delivery O2 Flow Rate FiO2 11/13/18 07:17 98.2 83 18 166/107 (126) 100 Room Air 98.2 EKG EKG [] Radiology/Procedures Radiology/Procedures [] Course & Med Decision Making Course & Med Decision Making Initially, I discussed plan of care with the patient, to place a dental block, until she can get in touch with her dentist this morning to arrange definitive treatment. After I had gathered the supplies to go do the dental block, I met with the patient as she was walking out of the treatment room, she stated that she had gotten in touch with her dentist and she did not want to stay in the emergency department or seek any further care here. She did not stop walking as she passed by me, and I was unable to complete her visit or discharge care definitively. Dragon Disclaimer Dragon Disclaimer This electronic medical record was generated, in whole or in part, using a voice recognition dictation system. Departure Departure Impression: Primary Impression: Pain, dental Disposition: 07 AGAINST MEDICAL ADVICE (eloped) Condition: STABLE Referrals: NO PCP (PCP) Patient Instructions: Dental Pain ABISAI BLANCO MD Nov 13, 2018 07:36
== END 2018-11-13 08:03 | disposition left against medical advice (07) ==
LOC: ER 07:08
DX: K08.89 Other specified disorders of teeth and supporting structures (principal); Z98.890 Other specified postprocedural states; Z87.891 Personal history of nicotine dependence
CPT/HCPCS: 99281; 99284

== ENCOUNTER → 2020-01-24 | Outpatient (CLI) | payer OTHER ==
--- NOTE | 2020-01-24 09:10 | RAD ---
EXAMINATION: PELVIS W/TV (PELVIC ULTRASOUND) HISTORY: Heavy menses TECHNIQUE: Sonography of the pelvis was performed by transabdominal technique. COMPARISON: 02/25/2016 FINDINGS: Uterus: 10.4 x 6.4 x 5.3 cm - Orientation: Anteverted - Myometrium: Normal sonographic appearance. - Endometrial echo complex: 10 mm - Cervix: Normal Right ovary: 3.2 x 1.8 x 2.1 cm - Normal sonographic appearance. Arterial and venous flow is present throughout the ovary on color Doppler imaging with normal spectral waveforms. Left ovary: 2.9 x 2.0 x 3.0 cm - Normal sonographic appearance. Arterial and venous flow is present throughout the left ovary on color Doppler imaging with normal spectral waveforms. Pelvic free fluid: None. IMPRESSION: Normal sonographic appearance of the pelvis. Electronically signed by: Kyaw Thomas DO (01/24/2020 9:07 AM) [id number]
== END ==
LOC: US 07:59
PROVIDERS: ATTEND Obstetrics & Gynecology
DX: N92.0 Excessive and frequent menstruation with regular cycle (principal)
CPT/HCPCS: 76830; 76856

== ENCOUNTER 2020-02-01 07:31 | Emergency (ER) | payer OTHER ==
[~2020-02-01] VITALS: Ht 160 cm; Wt 77.0 kg
--- NOTE | 2020-02-01 07:44 | PHYS DOC ---
Past Medical History Past Medical History: No Pertinent History Past Surgical History: Smoking Status: Former Smoker Alcohol Use: None Drug Use: None General Adult EDM: Chief Complaint: VAGINAL BLEEDING HPI: HPI: 34 yo (vaginal delivery, C/s and ) with no significant past medical history, presents to the ED with complaints of heavy vaginal bleeding, using 2-3 large pads every hour, menses started yesterday. Patient also complains of bilateral lower pelvic cramping stating " the pain feels like contractions," no relief with Midol and Motrin-states she has never experienced pain like this before and the pain is always associated with vaginal bleeding. Prior LMP was 12/25-menses usually occur every 3 to 4 weeks and last for 5 days. The past 4 months her menses have been very heavy and more painful for the initial few days. No sexual intercourse for the past 6 months, is not concerned for STIs. H/o treated chlamydia 118. Had a Pap smear 2 weeks ago with her AURIST Dr. Joseph and was told she had an enlarged uterus, followup appointment next week and service developer referred pt here today. Takes no routine medications and is not on any control. History of iron deficiency anemia, is not currently taking any iron supplements, no history of blood transfusions. No family history of bleeding disorders. No history of liver disease. Denies any abdominal/blunt trauma. No known FB-never uses tampons. EMR was reviewed and balaji zhang had a pelvic transvaginal ultrasound on January 23 (8 days ago) that showed normal-appearing anteverted uterus, no fibroids, normal vascular flow to both ovaries, no free fluid. PSH . Pt works is an aid for [employer] Review of Systems: Review of Systems: Constitutional: Denies fever or chills. [] Eyes: Denies change in visual acuity. [] HENT: Denies nasal congestion or sore throat. [] Respiratory: Denies cough or shortness of breath. [] Cardiovascular: Denies chest pain or edema. [] GI: Denies nausea, vomiting, bloody stools or diarrhea. [] : Denies dysuria, hematuria, increased urinary frequency or urgency, denies any abnormal vaginal discharge, itching or odor, no dyspareunia Musculoskeletal: Denies back pain, cva ttp or joint pain. [] Integument: Denies rash. [] Neurologic: Denies headache, focal weakness or sensory changes. [] or neck stiffness Endocrine: Denies polyuria or polydipsia. [] Lymphatic: Denies swollen glands. [] Psychiatric: Denies depression or anxiety. [] Heart Score: Risk Factors: Risk Factors: DM, Current or recent (<one month) smoker, HTN, HLP, family history of CAD, obesity. Risk Scores: Score 0 - 3: 2.5% MACE over next 6 weeks - Discharge Home Score 4 - 6: 20.3% MACE over next 6 weeks - Admit for Clinical Observation Score 7 - 10: 72.7% MACE over next 6 weeks - Early Invasive Strategies Allergies: Allergies: Allergies Coded Allergies Type Severity Reaction Last Updated Verified No Known Drug Allergies 03/09/18 No Physical Exam: PE: Constitutional: Well developed, well nourished, tearful and obviously in pain HENT: Normocephalic, atraumatic, Eyes: EOMI, conjunctiva normal, no discharge. [] Neck: Normal range of motion, supple, Cardiovascular: S1/S2 present Lungs & Thorax: Speaking in full sentences, bilateral equal chest rise Abdomen: soft, no RUQ ttp, negative Rovsing's sign, negative Sears's sign, no pain at McBurney's, lower pelvic ttp Skin: Warm, dry, no erythema, no rash. [] Back: No tenderness, no CVA tenderness. [] Extremities: No tenderness, no cyanosis, no clubbing, ROM intact, no edema. [] Neurologic: Alert and oriented X 3, normal motor function, normal sensory function, no focal deficits noted. [] Psychologic: Affect normal, judgement normal, mood normal. [] Pelvic: chaperoned by RN, external exam with vaginal bleeding/no rash or lesions, moderate blood in vaginal vault, multiparous cervix with os closed, no brisk bleeding at os, no erythematous cervix, no adnexal tenderness or CMT tenderness EKG: EKG: [] Radiology/Procedures: Radiology/Procedures: IMAGING REPORT Signed PATIENT: AUGUSTIN BURT ACCOUNT: [id number] : 1985 LOCATION: ER AGE: 34 SEX: F EXAM STATUS: REG ER ORD. PHYSICIAN: OMEGA MARRERO DO REASON: heavy vb and cramps PROCEDURE: TRANSVAGINAL EXAM: Pelvic sonogram. HISTORY: Pain and bleeding. TECHNIQUE: Transvaginal sonographic imaging of the pelvis was performed. COMPARISON: 01/24/2020. FINDINGS: The uterus measures 10.2 x 5.8 x 5.1 cm. The endometrial stripe measures 5.3 mm in thickness. The uterine junctional zone is indistinct, suggesting possible adenomyosis. No uterine mass is seen. The ovaries are normal in size and demonstrate normal blood flow. There are small physiologic ovarian antral follicles. There is a small amount of pelvic free fluid. IMPRESSION: 1. Small amount of nonspecific pelvic free fluid. This is within physiologic limits for a premenopausal female. 2. Indistinct uterine endometrial/myometrial junction. The possibility of adenomyosis is not excluded. Electronically signed by: Yuliana Mcclelland MD (02/01/2020 9:03 AM) [id number] DICTATED and SIGNED BY: YULIANA MCCLELLAND MD DATE: 02/01/20 0903 Course & Med Decision Making: Course & Med Decision Making Pertinent Labs and Imaging studies reviewed. (See chart for details) Concern for menorrhagia with possible adenomyosis (consider biopsy vs mri with obgyn to confirm). TVUS with normal ovarian blood flow. Hg 12.4 (9 in 2018). I did d/w kofi Posada on-call who recommends depo-provera 150 mg IM and outpt followup. Pt states morphine helped with the pain. Does not have someone that can drive her home and agrees with plan for short-term dosing of outpatient analgesia-patient understands no alcohol or driving with this medication. Work note provided. Patient was educated that we did not rule out intra-abdominal sources of life-threatening diseases. States her pain is significantly improved and feels well to return home. Was given strict ED return precautions for worse abdominal pain, back pain or dehydration. Encouraged urgent outpatient follow-up with PMD and AURIST. Life-threatening processes were considered but are low suspicion at this time, given history and physical exam. Pt was educated on all prescription medications and adverse effects. All patient's questions were answered and pt was stable at time of discharge. Life/limb-threatening differential includes but is not limited to, aortic dissection, aortic aneurysm, acute coronary syndrome, surgical abdomen (appendicitis, cholecystitis, ischemic bowel, strangulated hernia, etc), bowel obstruction or volvulus, bladder outlet obstruction, gastrointestinal bleeding, inflammatory bowel disease, peptic ulcer disease, sepsis, diverticular disease, ureterolithiasis, nephrolithiasis, ovarian torsion, ectopic , vaginal hemorrhage, or genitourinary infection. I spoken with the patient and her caregivers. I explained the patient's condition, diagnoses and treatment plan based on the information available to me at this time. I have answered the patient and her caregiver's questions and addressed any concerns. The patient and her caregivers have a good understanding of patient's diagnosis, condition and treatment plan as can be expected at this point. Vital signs have been stable. Patient's condition is s table and appropriate for discharge from the emergency department. Patient will pursue further outpatient evaluation with primary care physician or other designated or consulting physician as outlined in the discharge instructions. The patient and/or caregivers are agreeable to this plan of care and follow-up instructions have been explained in detail. The patient and/or caregivers have received these instructions in written form and have expressed an understanding of the discharge instructions. The patient and/or caregivers are aware that any significant change of condition or worsening of symptoms should prompt immediate return to this or the closest emergency department or call to 911. Adelfo Disclaimer: Adelfo Disclaimer: This electronic medical record was generated, in whole or in part, using a voice recognition dictation system. Departure Departure Impression: Primary Impression: Menorrhagia Additional Impression: Menstrual cramps Disposition: 01 DC HOME SELF CARE/HOMELESS Condition: STABLE Referrals: RENEE LARA MD (PCP) myosis Patient Instructions: Menorrhagia Additional Instructions: FOLLOW UP WITH AURIST: possible adenomysis on ultrasound Adenomyosis is a condition in which the inner lining of the uterus (the endometrium) breaks through the muscle wall of the uterus (the myometrium). Adenomyosis can cause menstrual cramps, lower abdominal pressure, and bloating before menstrual periods and can result in heavy periods. The condition can be located throughout the entire uterus or localized in one spot. Though adenomyosis is considered a benign (not life-threatening) condition, the frequent pain and heavy bleeding associated with it can have a negative impact on a woman's quality of life [facility] Address: [address] [place] [address] EMERGENCY DEPARTMENT GENERAL DISCHARGE INSTRUCTIONS Thank you for coming to [facility] Emergency Department (ED) today and trusting us with you care. We trust that you had a positive experience in our Emergency Department. If you wish to speak to the department management, you may call the Director at [phone]. YOUR FOLLOW UP INSTRUCTIONS ARE FOLLOWS: 1. Do you have a private Doctor? If you do not have a private doctor, please ask for a resource list of physicians or clinics that may be able to assist you with follow up care. 2. The Emergency Physicain has interpreted your x-rays. The X-Ray specialist will also review them. If there is a change in the findings, you will be notified in 48 hours when at all possible. 3. A lab test or culture has been done, your results will be reviewed and you will be notified if you need a change in treatment. ADDITIONAL INSTRUCTIONS AND INFORMATION: 1. Your care today has been supervised by a physician who is specially trained in emergency care. Many problems require more than one evaluation for a complete diagnosis and treatment. We recommend that you schedule your follow up appointment as recommended to ensure complete treatment of you illness or injury. If you are unable to obtain follow up care and continue to have a problem, or if your condition worsens, we recommend that you return to the ED. 2. We are not able to safely determine your condition over the phone nor are we able to give sound medical advice over the phone. For these safety reasons, if you call for medical advice we will ask you to come to the ED for further evaluation. 3. If you have any questions regarding these discharge instructions please call the ED at [phone]. SAFETY INFORMATION: In the interest of safety, wellness, and injury prevention; we encourage you to wear your sealbelt, if you smoke; quite smoking, and we encourage family to use a protective helmet for bicycling and other sporting events that present an increased risk for head injury. IF YOUR SYMPTOMS WORSEN OR NEW SYMPTOMS DEVELOP, OR YOU HAVE CONCERNS ABOUT YOUR CONDITION; OR IF YOUR CONDITION WORSENS WHILE YOU ARE WAITING FOR YOUR FOLLOW UP APPOINTMENT; EITHER CONTACT YOUR PRIMARY CARE DOCTOR, THE PHYSICIAN WHOSE NAME AND NUMBER YOU WERE GIVEN, OR RETURN TO THE ED IMMEDIATELY. Scripts Hydrocodone/Apap 5-325 (NORCO 5-325 TABLET) 1 Each Tablet 1 TAB PO PRN Q6HRS PRN for PAIN for 3 Days, #12 TAB 0 Refills Prov: OMEGA MARRERO DO 02/01/20 Ibuprofen (IBUPROFEN) 600 Mg Tablet 600 MG PO PRN Q6HRS PRN for PAIN, #20 TAB take with food or milk Prov: OMEGA MARRERO DO 02/01/20 OMEGA MARRERO DO Feb 01, 2020 07:44
[2020-02-01] MEDS ORDERED: MORPHINE SULFATE 4 MG/ML VIAL. IV ONE (08:00)
[2020-02-01] MEDS ORDERED: ONDANSETRON PF 4 MG/2 ML VIAL. IVP ONE (08:00)
[2020-02-01 08:12] LABS: BASO # 0.1 x10^3/uL (0.0-0.2); BASO % 1 % (0-3); EOS # 0.2 x10^3/uL (0.0-0.7); EOS % 3 % (0-3); HEMATOCRIT 36.5 % (36.0-47.0); HEMOGLOBIN 12.3 g/dL (12.0-15.5); LYMPH # 2.7 x10^3/uL (1.0-4.8); LYMPH % 48 % (24-48); MEAN CORPUSCULAR HEMOGLOBIN 28 pg (25-35); MEAN CORPUSCULAR HGB CONC 34 g/dL (31-37); MEAN CORPUSCULAR VOLUME 84 fL (79-100); MONO # 0.3 x10^3/uL (0.0-1.1); MONO % 5 % (0-9); NEUT # 2.4 x10^3/uL (1.8-7.7); NEUT % 42 % (31-73); PLATELET COUNT 302 x10^3/uL (140-400); RED BLOOD COUNT 4.35 x10^6/uL (3.50-5.40); RED CELL DISTRIBUTION WIDTH 15.2 % (11.5-14.5); WHITE BLOOD COUNT 5.6 x10^3/uL (4.0-11.0)
[2020-02-01] MEDS ORDERED: medroxyPROGESTERone IM 150 MG/ML VIAL. IM ONE (08:15)
[2020-02-01 08:17] LABS: CALCIUM 8.7 mg/dL (8.5-10.1); CREATININE 0.7 mg/dL (0.6-1.0); GFR 116.6; POTASSIUM 3.7 mmol/L (3.5-5.1)
[2020-02-01 09:05] LABS: PREG TEST PT QUAL NEGATIVE (NEG)
[2020-02-01 09:05] LABS: BILIRUBIN,URINE NEGATIVE (NEG); CLARITY,URINE CLEAR; COLOR,URINE YELLOW; NITRITE,URINE NEGATIVE (NEG); PROTEIN,URINE NEGATIVE (NEG-TRACE); UROBILINOGEN,URINE 0.2 mg/dL (0.2 mg/dL)
[2020-02-01 09:06] VITALS: BP 114/77
--- NOTE | 2020-02-01 09:06 | RAD ---
EXAM: Pelvic sonogram. HISTORY: Pain and bleeding. TECHNIQUE: Transvaginal sonographic imaging of the pelvis was performed. COMPARISON: 01/24/2020. FINDINGS: The uterus measures 10.2 x 5.8 x 5.1 cm. The endometrial stripe measures 5.3 mm in thickness. The uterine junctional zone is indistinct, suggesting possible adenomyosis. No uterine mass is seen. The ovaries are normal in size and demonstrate normal blood flow. There are small physiologic ovarian antral follicles. There is a small amount of pelvic free fluid. IMPRESSION: 1. Small amount of nonspecific pelvic free fluid. This is within physiologic limits for a premenopausal female. 2. Indistinct uterine endometrial/myometrial junction. The possibility of adenomyosis is not excluded. Electronically signed by: Yuliana Aly MD (02/01/2020 9:03 AM) [id number]
[2020-02-01 09:23] LABS: BACTERIA,URINE 0 /HPF (0-FEW); RBC,URINE OCC /HPF (0-2); WBC,URINE 0 /HPF (0-4)
[2020-02-01] MEDS ORDERED: HYDROmorphone 2 MG/ML VIAL IVP ONE (09:30)
[2020-02-01] MEDS ORDERED: IBUP-1007 PO (09:33)
[2020-02-01] MEDS ORDERED: HYDR-3164 PO (09:33)
== END 2020-02-01 09:41 | disposition home or self-care (01) ==
LOC: ER 07:31
DX: N92.0 Excessive and frequent menstruation with regular cycle (principal); N94.6 Dysmenorrhea, unspecified; R10.2 Pelvic and perineal pain; Z98.890 Other specified postprocedural states; Z87.891 Personal history of nicotine dependence
CPT/HCPCS: 36415; 76830; 80048; 81001; 81025; 84703; 85025; 96372; 96374; 96375; 99284; J1050; J2270; J2405